=== PATIENT | female | born 1930 | race Caucasian/White ===

== ENCOUNTER 2021-11-07 21:37 | Emergency (ER) | payer MEDICARE, OTHER ==
[~2021-11-07] VITALS: Ht 167.6 cm; Wt 87.1 kg
--- NOTE | 2021-11-07 21:40 | NUR ---
Pt BIB [facility] straight back to room ED2B due to a lac to the Rt anterior moreno surface approx 4in inferior tothe Rt knee. Pt placed on gurney in pos of comfort, immediately connected to bedside monitor and initial vs obtained.
--- NOTE | 2021-11-07 21:43 | NUR ---
Pt's Rt lower leg elevated via gross trendelenberg and pillow underneath leg. Dressing on midshin cut with sheers and large skin avultion exposed to light so EDMD can inspect. Skin tear approx 5 in long and 3in from margin to margin. Pt complaining of pain upon manipulation of wound.
--- NOTE | 2021-11-07 21:45 | NUR ---
EDMD at bedside for eval. dressing on Rt moreno cut and wound exposed to light for EDMD inspection. Pt aaox3, can follow commands, answer questions and hold a conversation. She is however moderately TAKOTNA, one must really speak loadly for her to here. VSS, NSR without ectopy, 100%RA, 61bpm RRR, normal s1s2 without m/g/r, lungs clear bilat throughout. 128/65, 61bpm, 98% RA. Pt is stable complaining of 5/10 pain, EDMD ordered 1g APAP and given without difficulty or incident. no s/sx of distress noted.
--- NOTE | 2021-11-08 00:05 | NUR ---
WOund cleansed with CHG large swab, then dowsed with sterle NS. Now that would is clean and dry, Gelgauze and sterile [id number] placed on wousd as a simple bulky dressing and wrapped with 4inch kerlix and 6 inch stephanie wrap to provide the pressure. Pt has good laundry routeman and cap refil before and after application of pressure wound dressing.
[2021-11-08] MEDS ORDERED: SULF1TAB48 PO (01:58)
[2021-11-08] MEDS ORDERED: SULFAMETH/TRIMETH 800/160 MG TABLET PO ONE (02:00)
[2021-11-08] MEDS ORDERED: TDAP DIPH,PERTUSS,TET VAC/PF 0.5 ML DISP.SYRIN IM ONE ×2 (02:00→04:02)
[2021-11-08] MEDS ORDERED: ACETAMINOPHEN ES 500 MG TABLET ONE (02:12)
--- NOTE | 2021-11-08 02:39 | NUR ---
called halfway and gave report and brief aftercare instructions for medical office receptionist assistant to relay to nurse regarding wound care and infection control. snf gave green light to transport pt.
--- NOTE | 2021-11-08 02:45 | NUR ---
Called [facility] for tranport back to facility. Pt dispo is DC back to facility. ETA for amb is approx 1hr. they will be arriving around 0345. Pt is resting comfortably with audible snorring. VSS 105/64, 61bpm,99%RA , 16rpm. Call light in hand, rails up and all needs met.
--- NOTE | 2021-11-08 03:15 | NUR ---
academic computing director arrived within the hour and obtained last set of vitals, loaded up the pt on to amb stretcher and secured pt. Brief report was given to EMT using SBAR, pt's facility also called and given a heads up that pt will soon be inroute. Pt is aaox3, only complaining of slight pain at wound site 11/14, no sob, n/v, or discomfort. no s/sx of distress noted. VSS, PD wnl, Rt foot has good distal pulse and good cms. Pt given dc instructions and med info and acknowledged understanding of aftercare and med infor.
[2021-11-08] MEDS ORDERED: SULFAMETH/TRIMETH 800/160 MG TABLET ONE (04:02)
[2021-11-08 05:31] VITALS: BP 128/68
[2021-11-08] MEDS ORDERED: LOSA100T31 PO (14:42)
[2021-11-08] MEDS ORDERED: AMLO-212 PO (14:42)
[2021-11-08] MEDS ORDERED: HYDR-4077 PO (14:42)
[2021-11-08] MEDS ORDERED: METO25TA6 PO (14:42)
[2021-11-08] MEDS ORDERED: CLOP75TA33 PO (14:42)
[2021-11-08] MEDS ORDERED: SIMV-46 PO (14:42)
[2021-11-09] MEDS ORDERED: HYDR-894 PO (14:01)
== END 2021-11-08 04:19 ==
LOC: ER 21:40
DX: S81.801A Unspecified open wound, right lower leg, initial encounter (principal); W22.8XXA Striking against or struck by other objects, initial encounter; Y92.091 Bathroom in other non-institutional residence as the place of occurrence of the external cause; I87.2 Venous insufficiency (chronic) (peripheral); I73.9 Peripheral vascular disease, unspecified; M79.89 Other specified soft tissue disorders; R03.0 Elevated blood-pressure reading, without diagnosis of hypertension; J45.909 Unspecified asthma, uncomplicated
CPT/HCPCS: 73590; 90715; A4217; A4663; A9150

== ENCOUNTER 2021-11-08 06:13 | Inpatient (IN) | payer MEDICARE, OTHER ==
[~2021-11-08] VITALS: Ht 167.6 cm; Wt 89.4 kg
[~2021-11-08 06:13] MED LIST: SULF1TAB48 PO
--- NOTE | 2021-11-08 07:02 | NUR ---
Pt was just DCed from ED after having her large skin tear (deep skin avulsion) on her Rt moreno irrigated, treated and dressed using gelgauze and bulky sterile 4x4s and a 6 in stephanie wrap to provide pressure. Pressure dressing applied without difficulty, pt has good cms and cap refil <3sec. Pt tranfered back to facility only to be sent back to the ED for the wound being "ripped open" again. Pt brought straight back to same room ED2B, connected to monitor and inital vs obtainsed, SBP a little low, and pt appears a little pale and slightly altered from when she just left. 3 lead monitor looks good NSR without ectopy. Pt denies any pain, sob, n/v, dizziness, or discomfort. Pt is patiently awaiting EDMD for eval. no s/sxof distress present.
--- NOTE | 2021-11-08 07:40 | NUR ---
Patient is awake and alert. States she feels "tired" and has chest discomfort. [address] Harris aware.
--- NOTE | 2021-11-08 07:41 | NUR ---
Wound on lower leg is bleeding through the bandages. Dr Harris and I removed the soiled dressings and placed surgifoam, gauze and stephanie wrap for pressure. It is no longer bleeding. Patient drank some water. Will place IV.
[2021-11-08 08:12] LABS: HEMATOCRIT 25.3 % (31.2-41.9); MEAN CORPUSCULAR VOLUME 88.2 fL (75.5-95.3); PLATELET COUNT (AUTO) 500 K/uL (179-408)
[2021-11-08 08:14] LABS: CARBON DIOXIDE 22 mmol/L (21-32); CHLORIDE 99 mmol/L (98-107); CREATININE 1.6 mg/dL (0.6-1.3); GLUCOSE 229 mg/dL (74-106); POTASSIUM 4.4 mmol/L (3.5-5.1); UREA NITROGEN, BLOOD 59 mg/dL (7-18)
[2021-11-08 08:24] LABS: ALANINE AMINOTRANSFERASE 19 U/L (14-59); ALKALINE PHOSPHATASE 68 U/L (50-136); ASPARTATE AMINOTRANSFERASE 16 U/L (15-37); BILIRUBIN,TOTAL 0.6 mg/dL (0.2-1.0); TOTAL PROTEIN, SERUM 5.2 g/dL (6.4-8.2)
--- NOTE | 2021-11-08 08:55 | NUR ---
Patient is a very difficult IV start. Michelle and Joseph attewmpt to place IV with no sucess. Called IV nurse to place midline FILIPPO. Patient is awake and alert.
[2021-11-08] MEDS ORDERED: IV NORMAL SALINE 1000 ML BAG IV ONE (09:15)
--- NOTE | 2021-11-08 09:27 | NUR ---
Hand off report given to Raya in tele. patient aware of pending admission
--- NOTE | 2021-11-08 10:01 | NUR ---
Patient states she lives at [facility] [phone]. I spoke to her nurse there who is suppose to fax med list, pt info and recent (negative)covid test
[2021-11-08 10:49] VITALS: BP 119/43
[2021-11-08] MEDS ORDERED: REMEDY ESSENTIAL ZINC PASTE 113 GM TP PRN (13:45)
[2021-11-08] MEDS ORDERED: ONDANSETRON 4 MG/2 ML VIAL IV PRN (13:45)
[2021-11-08] MEDS ORDERED: CLOP75TA33 PO (14:42)
[2021-11-08] MEDS ORDERED: AMLO-212 PO (14:42)
[2021-11-08] MEDS ORDERED: SIMV-46 PO (14:42)
[2021-11-08] MEDS ORDERED: HYDR-4077 PO (14:42)
[2021-11-08] MEDS ORDERED: LOSA100T31 PO (14:42)
[2021-11-08] MEDS ORDERED: METO25TA6 PO (14:42)
[2021-11-08 15:30] VITALS: BP 118/53
[2021-11-08] MEDS: IV NS 1000 ML 1,000 ML IV ONE (16:42)
[2021-11-08] MEDS ORDERED: METOPROLOL TARTRATE 25 MG TABLET PO SCH (17:00)
[2021-11-08] MEDS ORDERED: CEFTRIAXONE 2 G in IV DEXTROSE 5% 100 ML IV SCH (18:00)
[2021-11-08 20:00] VITALS: BP 101/41
[2021-11-08] MEDS: METOPROLOL TARTRATE 25 MG TABLET PO SCH (21:00)
[2021-11-08] MEDS: SIMVASTATIN 20 MG TABLET PO SCH (21:01)
[2021-11-08] MEDS: CEFTRIAXONE 2 G in IV DEXTROSE 5% 100 ML IV SCH (21:01)
[2021-11-09] VITALS (9 sets, daily range): BP systolic 133–155; BP diastolic 37–67
--- NOTE | 2021-11-09 | NUR ---
RECD PT IN BED, QUIETLY RESTING, ALERTIENTED X4, NEEDS ATTENDED TO,NO COMPLAINTS MADE,POLLARD CATH PATENT AND INTACT.PRUNE JUICE GIVEN, AWAITING TO HAVE A BM, STOOL OB NEEDED.ON TELE SINUS 72.
--- NOTE | 2021-11-09 | NUR ---
RECD PT IN BED, QUIETLY RESTING, ALERT/ORIENTED X4, NO VOICED COMPLAINTS, POLLARD CATH PATENT AND INTACT, REPOSITIONED FOR COMFORT.SLEPT ON AND OFF.
[2021-11-09] MEDS: PANTOPRAZOLE SODIUM 40 MG TABLET.DR PO SCH (06:15)
[2021-11-09 07:30] LABS: ALANINE AMINOTRANSFERASE 34 U/L (14-59); ALKALINE PHOSPHATASE 80 U/L (50-136); ASPARTATE AMINOTRANSFERASE 31 U/L (15-37); BILIRUBIN,TOTAL 0.3 mg/dL (0.2-1.0); CARBON DIOXIDE 25 mmol/L (21-32); CHLORIDE 100 mmol/L (98-107); CHOLESTEROL 103 mg/dL (<200); GLUCOSE 121 mg/dL (74-106); HDL CHOLESTEROL 41 mg/dL (40-60); MAGNESIUM 2.5 mg/dL (1.8-2.4); PHOSPHOROUS 5.2 mg/dL (2.5-4.9); POTASSIUM 4.6 mmol/L (3.5-5.1); TRIGLYCERIDES 85 MG/DL (30-150); UREA NITROGEN, BLOOD 69 mg/dL (7-18)
[2021-11-09] MEDS: IV NS 1000 ML 1,000 ML IV PRN (07:42)
[2021-11-09 08:35] LABS: *BILIRUBIN,URIN NEGATIVE (NEGATIVE); *BLOOD, URINE NEGATIVE (NEGATIVE); *CLARITY,URINE CLEAR (CLEAR); *COLOR,URINE YELLOW (YELLOW); *KETONES,URINE NEGATIVE (NEGATIVE); *UROBILINOGEN,URINE 0.2 E.U./dl (NORMAL); LEUKOCYTE ESTERASE ,URINE NEGATIVE (NEGATIVE); NITRITE, URINE NEGATIVE (NEGATIVE); UGLUCOSE NEGATIVE (NEGATIVE)
[2021-11-09 08:40] LABS: MEAN CORPUSCULAR HEMOGLOBIN 28.9 uug (24.7-32.8); MEAN CORPUSCULAR VOLUME 87.2 fL (75.5-95.3); PLATELET COUNT (AUTO) 363 K/uL (179-408)
--- NOTE | 2021-11-09 08:48 | NUR ---
NOTIFIED FROM LAB HGB 6.3. NOTIFIED
[2021-11-09] MEDS ORDERED: CLOPIDOGREL 75 MG TABLET PO SCH (09:00)
[2021-11-09 09:03] LABS: CREATINE KINASE, TOTAL 84 U/L (26-192)
[2021-11-09] MEDS: METOPROLOL TARTRATE 25 MG TABLET PO SCH ×2 (10:45→21:00)
[2021-11-09] MEDS: IV NS 1000 ML 1,000 ML IV ONE (10:46)
[2021-11-09 12:47] LABS: HEMATOCRIT 17.8 % (31.2-41.9)
[2021-11-09 13:52] LABS: BAND % (MANUAL) 1 % (0-10); EOSINOPHILS % (MANUAL) 1 % (0-8); LYMPHOCYTES % (MANUAL) 6 % (20-40); MONOCYTES % (MANUAL) 5 % (2-10); NEUTROPHILS % (MANUAL) 87 % (42-75)
[2021-11-09] MEDS ORDERED: HYDR-894 PO (14:01)
[2021-11-09 16:16] LABS: *CREATININE,URINE 75.4 mg/dL (30-125)
[2021-11-09 16:18] LABS: *URINE TOTAL PROTEIN RANDOM < 11.9 mg/dL (<150/24HR)
--- NOTE | 2021-11-09 17:16 | NUR ---
1 unit prbc infused. joe well. no adverdse reactions noted. awake alert watching tv able to make needs known
--- NOTE | 2021-11-09 18:34 | NUR ---
US TECH IN TO DO US OF CAROTIDS AND KIDNEY. NOTED TO HAVE >1300 ML OF URINE IN BLADDER,. STATES SHE DOES NOT FEEL THE NEED TO URINATE. F/C INSERTED 1400 ML CLEAR DOMENICA URINE REMOVED NOTIFIED
--- NOTE | 2021-11-09 18:49 | NUR ---
NOTIFIED MD OF POLLARD CATHETER INSERTION. ASK TO LEAVE IN OR TAKE OUT
[2021-11-09] MEDS: CEFTRIAXONE 2 G in IV DEXTROSE 5% 100 ML IV SCH (20:00)
[2021-11-09] MEDS: SIMVASTATIN 20 MG TABLET PO SCH (21:00)
--- NOTE | 2021-11-09 21:00 | NUR ---
2100ZOCOR GIVEN ORDERED.
[2021-11-10] VITALS (7 sets, daily range): BP systolic 138–166; BP diastolic 41–54
--- NOTE | 2021-11-10 | NUR ---
DUE MEDS GIVEN , SLEPT AT LONG INTERVALS. NO C/O CHEST [PAIN.KEPT WARM AND COMFORTABLE.
[2021-11-10 05:41] LABS: MEAN CORPUSCULAR VOLUME 89.1 fL (75.5-95.3)
[2021-11-10 05:44] LABS: MEAN CORPUSCULAR HEMOGLOBIN 30.1 uug (24.7-32.8); PLATELET COUNT (AUTO) 255 K/uL (179-408)
[2021-11-10 05:57] LABS: CREATININE 1.3 mg/dL (0.6-1.3); MAGNESIUM 2.4 mg/dL (1.8-2.4); PHOSPHOROUS 2.8 mg/dL (2.5-4.9); POTASSIUM 4.5 mmol/L (3.5-5.1)
[2021-11-10 06:06] LABS: HEMATOCRIT 20.8 % (31.2-41.9)
[2021-11-10] MEDS: PANTOPRAZOLE SODIUM 40 MG TABLET.DR PO SCH (06:45)
--- NOTE | 2021-11-10 06:53 | NUR ---
STOOL FOR OB SENT TO LAB.
--- NOTE | 2021-11-10 07:46 | NUR ---
ENDORSED TO AM NURSE IN FAIR CONDITION, LATEST HEMOGLOBIN 7.1.
[2021-11-10 07:53] LABS: *OCCULT BLOOD STOOL NEGATIVE (NEGATIVE)
[2021-11-10] MEDS: SIMVASTATIN 20 MG TABLET PO SCH ×2 (07:59→21:40)
[2021-11-10] MEDS: METOPROLOL TARTRATE 25 MG TABLET PO SCH ×2 (09:26→21:41)
[2021-11-10] MEDS: IV NS 1000 ML 1,000 ML IV PRN (16:45)
[2021-11-10] MEDS: CEFTRIAXONE 2 G in IV DEXTROSE 5% 100 ML IV SCH (20:56)
--- NOTE | 2021-11-11 04:12 | NUR ---
Received to care, lying in bed, pleasant upon approach. Left lower extremity dressing remains clean, dry, and intact. Denies any pain or discomfort. Went to sleep, without incident. Has mostly slept all night. Given water and a blanket earlier, but remains asleep at this time, call light in reach, no distress noted.
[2021-11-11] MEDS: ACETAMINOPHEN 325 MG TABLET PO PRN ×2 (04:48→22:10)
[2021-11-11 04:54] VITALS: BP 165/59
[2021-11-11] MEDS: IV NS 1000 ML 1,000 ML IV PRN ×2 (05:18→20:53)
--- NOTE | 2021-11-11 06:30 | NUR ---
Wound care care was done to RLE skin tear. wound was cleansed with normal saline, and dressed. No bleeding noted.
[2021-11-11] MEDS: PANTOPRAZOLE SODIUM 40 MG TABLET.DR PO SCH (07:02)
[2021-11-11] MEDS: METOPROLOL TARTRATE 25 MG TABLET PO SCH ×2 (07:02→20:52)
--- NOTE | 2021-11-11 07:03 | NUR ---
B/P is now 181/74, HR 61. 0900 dose of Metoprolol was given, at this time. I will endorse this to the morning shift, for follow up.
[2021-11-11 07:05] VITALS: BP 181/74
[2021-11-11 08:06] LABS: A/G RATIO 1.1 (0.7-1.7); ALBUMIN 2.4 g/dL (2.9-4.4); ALPHA-1-GLOBULIN 0.3 g/dL (0.0-0.4); ALPHA-2-GLOBULIN 0.7 g/dL (0.4-1.0); BETA GLOBULIN 0.7 g/dL (0.7-1.3); GAMMA GLOBULIN 0.5 g/dL (0.4-1.8); GLOBULIN, TOTAL 2.2 g/dL (2.2-3.9); M-SPIKE Not Observed g/dL (Not Observed)
[2021-11-11 08:24] LABS: MEAN CORPUSCULAR HEMOGLOBIN 30.3 uug (24.7-32.8); MEAN CORPUSCULAR VOLUME 89.9 fL (75.5-95.3); PLATELET COUNT (AUTO) 262 K/uL (179-408)
[2021-11-11 08:42] LABS: HEMATOCRIT 20.1 % (31.2-41.9)
[2021-11-11 08:54] LABS: CREATININE 0.8 mg/dL (0.6-1.3); MAGNESIUM 2.1 mg/dL (1.8-2.4); PHOSPHOROUS 2.4 mg/dL (2.5-4.9); POTASSIUM 4.8 mmol/L (3.5-5.1)
[2021-11-11] MEDS: LOSARTAN POTASSIUM 50 MG TABLET PO SCH (09:09)
[2021-11-11 12:00] VITALS: BP 157/43
[2021-11-11] MEDS ORDERED: NEUTRA PHOS PACKET PO ONE (13:30)
--- NOTE | 2021-11-11 13:33 | NUR ---
Pt is a/o x 4. morning vitals were elevated for blood pressure, MD notified. Pt now has scheduled medications and prn Wound consult completed today, right lower leg wound cleaned and redressed with xeroform. Comfort measures provided, call light within reach. Will continue to monitor.
--- NOTE | 2021-11-11 13:35 | NUR ---
WOUND CARE CONSULT: PT PRESENTS WITH RT LOWER LEG TRAUMATIC WOUND WITH SURROUNDING REDNESS, PRESENT ON ADMISSION. DPM CONSULT CALLED TO DR JIMENEZ. WOUND CLEANSED WITH NS, XEROFORM AND KERLIX APPLIED. RECOMMENDATIONS MADE FOR SKIN PROTECTION. DISCUSSED WITH NURSING STAFF. IN AGREEMENT WITH PLAN OF CARE. Addendum: 11/11/21 at 1337 by AGUSTINA JUAREZ RN Amended: Links added.
[2021-11-11] MEDS: SOD FERRIC GLUC COMPLX/SUCROSE 125 MG in IV NORMAL SALINE 100 ML IV SCH (15:29)
[2021-11-11 16:00] VITALS: BP 180/49
--- NOTE | 2021-11-11 19:00 | NUR ---
PATIENT ALERT ORIENTED NO SOB NO CHEST PAIN, RLLE DRESSING INTACT, NO COMPLAIN OF PAIN, COMPLAIN OF CONSTIPATION, WILL MEDICATE ORDERED. CONT TO MONITOR.
[2021-11-11] MEDS: CEFTRIAXONE 2 G in IV DEXTROSE 5% 100 ML IV SCH (20:44)
[2021-11-11 21:30] VITALS: BP 161/56
[2021-11-11] MEDS ORDERED: MAGNESIUM HYDROXIDE 30 ML LIQUID UDC PO PRN (21:45)
[2021-11-11] MEDS: SIMVASTATIN 20 MG TABLET PO SCH (21:49)
[2021-11-12 00:30] VITALS: BP 183/66
--- NOTE | 2021-11-12 02:00 | NUR ---
PATIENT BP 183/66 GIVEN APRESOLINE IV 10MG ORDERED, ASYMPTOMATIC, CONT TO MONITOR.
[2021-11-12] MEDS: hydrALAZINE HCL 20 MG/1 ML VIAL IV PRN (02:02)
--- NOTE | 2021-11-12 04:56 | NUR ---
CURRENT BP 162/61 APRESINOLINE 10 MG IV EFFECTIVE, ASYMPTOMATIC. CONT TO MONITOR.
[2021-11-12 05:25] VITALS: BP 162/52
[2021-11-12] MEDS: PANTOPRAZOLE SODIUM 40 MG TABLET.DR PO SCH (06:24)
[2021-11-12 07:02] LABS: HEMATOCRIT 21.2 % (31.2-41.9); MEAN CORPUSCULAR HEMOGLOBIN 30.5 uug (24.7-32.8); MEAN CORPUSCULAR VOLUME 91.3 fL (75.5-95.3); PLATELET COUNT (AUTO) 292 K/uL (179-408)
--- NOTE | 2021-11-12 07:04 | NUR ---
PATIENT ALERT ORIENTED, ASLEEP BUT AROUSABLE, NO COMPLAIN OF PAIN, RLE DRESSING INTACT, NO DRAINAGE NOTED, CONT ON ABX WITH NO ADVERSE REEACTION NOTED, CONT TO MONITOR.
[2021-11-12 07:10] LABS: CREATININE 0.8 mg/dL (0.6-1.3); PHOSPHOROUS 2.6 mg/dL (2.5-4.9); POTASSIUM 4.8 mmol/L (3.5-5.1)
[2021-11-12] MEDS: LOSARTAN POTASSIUM 50 MG TABLET PO SCH (10:03)
[2021-11-12] MEDS: METOPROLOL TARTRATE 25 MG TABLET PO SCH ×2 (10:04→20:42)
[2021-11-12] MEDS: AMLODIPINE 10 MG TABLET PO SCH (10:06)
[2021-11-12 12:13] VITALS: BP 171/52
[2021-11-12] MEDS: SOD FERRIC GLUC COMPLX/SUCROSE 125 MG in IV NORMAL SALINE 100 ML IV SCH (14:48)
--- NOTE | 2021-11-12 15:37 | NUR ---
Received patient sleeping in her room. A/O X 2 to person. Pt. is confused at times, cooperative, calm. Compliant with medications. Hemoglobin of 7.1. Pt. is receiving Ferrlecit 125 mg IV as prescribed. Blood pressure running high at times, aware of it. Pt. has midline in the right upper arm. Pt. has jones catheter. Requires more than minimal assistance with ADL. Fall and safety precautions implemented.
[2021-11-12 16:00] VITALS: BP 164/52
--- NOTE | 2021-11-12 19:30 | NUR ---
Patient received in bed. AAO to person, place with some forgetfulness to time. Able to make needs known. Denies any pain. On RA, no SOB noted. Dressing in place to right leg, slight drainage noted. Safety measures initiated, call light within reach.
[2021-11-12] MEDS: SIMVASTATIN 20 MG TABLET PO SCH (20:41)
[2021-11-12] MEDS: CEFTRIAXONE 2 G in IV DEXTROSE 5% 100 ML IV SCH (20:41)
[2021-11-12 20:48] VITALS: BP 164/47
[2021-11-12] MEDS: IV NS 1000 ML 1,000 ML IV PRN (21:05)
[2021-11-13 04:42] VITALS: BP 180/59
[2021-11-13] MEDS: PANTOPRAZOLE SODIUM 40 MG TABLET.DR PO SCH (06:05)
[2021-11-13] MEDS: hydrALAZINE HCL 20 MG/1 ML VIAL IV PRN ×2 (06:05→17:58)
[2021-11-13 06:29] LABS: HEMATOCRIT 22.6 % (31.2-41.9); MEAN CORPUSCULAR HEMOGLOBIN 30.8 uug (24.7-32.8); MEAN CORPUSCULAR VOLUME 91.2 fL (75.5-95.3); PLATELET COUNT (AUTO) 320 K/uL (179-408)
[2021-11-13 06:42] LABS: CREATININE 0.7 mg/dL (0.6-1.3); MAGNESIUM 2.1 mg/dL (1.8-2.4); POTASSIUM 5.2 mmol/L (3.5-5.1)
--- NOTE | 2021-11-13 06:59 | NUR ---
NO Significant events this shift. Slept well. Wound treatment provided as ordered to right leg ulceration. Patient tolerated treatment well. All needs attended and met. Safety measures in place. Call light within reach.
--- NOTE | 2021-11-13 08:00 | NUR ---
awake alert oriented x 2, denies of pain, no distress noted, on room air, right leg elevated on pillow, dsg dry and intact, safety measures maintained, call light within reach
[2021-11-13 08:02] LABS: THYROID STIMULATING HORMONE 4.049 mIU/mL (0.358-3.740)
[2021-11-13] MEDS: LOSARTAN POTASSIUM 50 MG TABLET PO SCH (08:53)
[2021-11-13] MEDS: METOPROLOL TARTRATE 25 MG TABLET PO SCH (08:54)
[2021-11-13] MEDS: AMLODIPINE 10 MG TABLET PO SCH (08:54)
[2021-11-13 11:40] VITALS: BP 160/48
[2021-11-13] MEDS: IV NS 1000 ML 1,000 ML IV PRN (13:29)
[2021-11-13] MEDS: SOD FERRIC GLUC COMPLX/SUCROSE 125 MG in IV NORMAL SALINE 100 ML IV SCH (13:34)
[2021-11-13] MEDS ORDERED: SODIUM POLYSTYRENE SULFONATE 15 G/60 ML LIQUID UDC PO ONE (14:00)
[2021-11-13] MEDS ORDERED: hydrALAZINE HCL 50 MG TABLET PO SCH (14:00)
--- NOTE | 2021-11-13 15:00 | NUR ---
pt to be discharged today to SNF, right upper arm midline and jones cath in place draining sebastien urine
--- NOTE | 2021-11-13 16:25 | NUR ---
[facility]
[2021-11-13 16:37] VITALS: BP 158/42
--- NOTE | 2021-11-13 17:30 | NUR ---
ambulance here BP- 182/58, Maame Ferguson informed with order, apresoline 10mg IV given
[2021-11-13 17:58] VITALS: BP 182/58
--- NOTE | 2021-11-13 18:10 | NUR ---
BP 158/ 52, taken by ambulance per sarina with all belongings, pt in stable condition
[2021-11-14] MEDS ORDERED: ENSURE ENLIVE (VAN) 240 ML LIQUID PO SCH (09:00)
== END 2021-11-13 18:10 | DRG 811 ==
LOC: ER 06:18 → TELE3 10:03 → MEDSURG3 11-10 10:03
PROVIDERS: ADMIT Hospitalist; ATTEND Nurse Practitioner Family
PROC: 05H533Z Insertion of Infusion Device into Right Subclavian Vein, Percutaneous Approach (ICD-10-PCS; 2021-11-08)
PROC: B546ZZA Ultrasonography of Right Subclavian Vein, Guidance (ICD-10-PCS; 2021-11-08)
PROC: 30233N1 Transfusion of Nonautologous Red Blood Cells into Peripheral Vein, Percutaneous Approach (ICD-10-PCS; principal; 2021-11-09)
DX: D50.9 Iron deficiency anemia, unspecified (principal); N17.0 Acute kidney failure with tubular necrosis; E43 Unspecified severe protein-calorie malnutrition; J98.11 Atelectasis; L97.819 Non-pressure chronic ulcer of other part of right lower leg with unspecified severity; K29.70 Gastritis, unspecified, without bleeding; D75.839 Thrombocytosis, unspecified; E78.5 Hyperlipidemia, unspecified; E83.39 Other disorders of phosphorus metabolism; F03.90 Unspecified dementia, unspecified severity, without behavioral disturbance, psychotic disturbance, mood disturbance, and anxiety; Z20.822 Contact with and (suspected) exposure to COVID-19; S81.801A Unspecified open wound, right lower leg, initial encounter; X58.XXXA Exposure to other specified factors, initial encounter; Y93.9 Activity, unspecified; Y92.129 Unspecified place in nursing home as the place of occurrence of the external cause; R73.9 Hyperglycemia, unspecified; I73.9 Peripheral vascular disease, unspecified; J45.909 Unspecified asthma, uncomplicated; I87.2 Venous insufficiency (chronic) (peripheral); R53.1 Weakness; F41.9 Anxiety disorder, unspecified; R26.81 Unsteadiness on feet; E88.09 Other disorders of plasma-protein metabolism, not elsewhere classified; Z68.31 Body mass index [BMI] 31.0-31.9, adult; N18.9 Chronic kidney disease, unspecified; I12.9 Hypertensive chronic kidney disease with stage 1 through stage 4 chronic kidney disease, or unspecified chronic kidney disease; I35.1 Nonrheumatic aortic (valve) insufficiency; M79.661 Pain in right lower leg; Z99.3 Dependence on wheelchair; M19.90 Unspecified osteoarthritis, unspecified site
CPT/HCPCS: 36415; 70030-TC; 71045; 73590; 76770; 83550; 83735; 83970; 84100; 84155; 84156; 84165; 84300; 84443; 85018; 85025; 85610; 85730; 86850; 86900; 86901; 86920; 87086; 93307; 93880; 97161; A4663; G0378; J0360; J0696; J2916; J3490; J7030; J7040; J7060; P9016